=== PATIENT | male | born 1995 | race Caucasian/White ===

== ENCOUNTER 2019-11-18 14:32 | Emergency (ER) | payer SELFPAY ==
[2019-11-18] VITALS (10 sets, daily range): BP systolic 99–136; BP diastolic 49–78; PULSE 107–132; RESP 12–23; TEMP 36.9–39.1; O2SAT 94–95; BMI 24.4
--- NOTE | 2019-11-18 14:49 | EKG12_ITS ---
Test Reason : GN ILLNESS Blood Pressure : / mmHG Vent. Rate : 108 BPM Atrial Rate : 108 BPM P-R Int : 142 ms QRS Dur : 096 ms QT Int : 306 ms P-R-T Axes : 065 084 013 degrees QTc Int : 410 ms Sinus tachycardia Otherwise normal ECG Confirmed by SAGAR VENTURA, KIESHA ([id number]), society editor SERENE ZULETA ([id number]) on 11/21/2019 9:59:54 AM Referred By: Nany Elkins Confirmed By:KIESHA KEITH MD
--- NOTE | 2019-11-18 14:55 | NURSING ---
NO OLD EKGS
[2019-11-18] MEDS: Acetaminophen 500 MG Tablet 1000 MG PO (15:00)
[2019-11-18 15:03] LABS: Absolute Lymphocyte Count 0.96 X10^3/uL (0.83-4.51); Absolute Neutrophil Count 4.2 X10^3/uL (2.0-7.7); Basophil# 0.02 X10^3/uL; Basophil% 0.3 % (0-1); Eosinophil# 0.05 X10^3/uL; Eosinophils% 0.9 % (0-5); Hematocrit 42.8 % (40-54); Hemoglobin 14.7 g/dL (13.0-16.5); Lymphocyte # 0.96 X10^3/ul (4.0); Lymphocyte % 16.7 % (19-41); Mean Corp Hgb Conc 34.3 g/dL (32-36); Mean Corpuscular Hgb 29.8 pg (27.0-32.0); Mean Corpuscular Volume 86.6 fL (80-94); Mean Platelet Vol. 9.1 fl (6.2-12.0); Monocyte# 0.47 X10^3/uL; Monocyte% 8.2 % (0-10); NRBC Flagged by Analyzer 0 % (0-5); Neutrophil # 4.24 X10^3/uL (2.7-7.7); Neutrophil % 73.6 % (47-70); Platelet Count 208 K/mm3 (150-450); RBC Distribution Width CV 12.5 % (11.6-14.6); RBC Distribution Width SD 39.6 fl (35.1-43.9); Red Blood Count 4.94 M/mm3 (4.6-6.2); White Blood Count 5.8 K/mm3 (4.4-11.0)
[2019-11-18] MEDS: 0.9% Normal Saline 1,000 ML 999 ML IV ×3 (15:06→17:39)
--- NOTE | 2019-11-18 15:12 | RAD_ITS ---
STUDY: X-RAY CHEST REASON FOR EXAM: Male, 24 years old. cough, shortness of breath, fever TECHNIQUE: Frontal and lateral views of the chest were performed COMPARISON: None. FINDINGS: There is an ill-defined opacity in the left lower lobe, presumed pneumonia. The rest of the lungs are clear. There is no pneumothorax, cardiomegaly, pleural effusions or pulmonary edema. RAD/Chest PA and Lateral IMPRESSION: 1. Presumed left lower lobe pneumonia. Follow-up is recommended to document resolution. Suggest follow-up interval is 6 weeks. Electronically Signed: Junior Kraft, at 15:27 EST Tel , Service support ,
[2019-11-18 15:13] LABS: Partial Thromboplast Time 31.5 Seconds (24.1-36.2); Prothrombin Time (Protime)PT. 12.7 SECONDS (11.7-14.9)
--- NOTE | 2019-11-18 15:13 | ED.VIS.DYS ---
History of Present Illness Informant: Patient, Parent Onset: Weeks - 1 week Activity at onset: Exertion, Light Activity Timing: Continuous Quality: Dyspnea on exertion Current Severity: Severe Maximum Severity: Severe Worsened by: Coughing, Exertion Relieved by: Rest Associated Symptoms: Bloody Sputum, Chills, Cough, Fever, Green sputum, Sore throat, Sweats Chest Pain: Tightness Narrative: 24-year-old male history of asthma as a child presents with 5 days of dyspnea on exertion shortness of breath fevers and productive cough with green and blood streaked sputum. No vomiting or diarrhea. No chest pain. He is not lightheaded or dizzy. No leg pain or swelling. No recent travel or surgery. No history of DVT or PE. No relief with [id number] medications. PE Risk Factors: Negative for: Cancer, OCP + Smoking + > 35, Prior DVT or PE, Recent immobilization, Recent surgery, Recent travel Prior similar symptoms: Yes Recent Illness/Hospitalization: No <José Sherman - Last Filed: 11/18/19 17:35> <Kanu Field - Last Filed: 11/18/19 23:22> Chief Complaint: General Illness Past Medical History Prior records reviewed: Yes Past Medical History: None Surgical History: no surgical history Lives: With Family Smoking Status: Former smoker Alcohol: None Drugs: None <José Sherman - Last Filed: 11/18/19 17:35> <Kanu Field - Last Filed: 11/18/19 23:22> - Allergies and Home Meds Allergies/Adverse Reactions: Allergies Sulfa (Sulfonamide Antibiotics) Allergy (Verified 11/18/19 14:37) Rash MMR VACCINE Adverse Reaction (Uncoded 11/18/19 14:37) Other Primary Care Physician: Nany Elkins NP-C [Primary Care Provider] - 3-5 Days Review of Systems All systems negative except as indicated General: Reports: Chills, Fever, Malaise Eyes: Denies: Visual changes - bilaterally, Blurred Vision - bilaterally ENT: Reports: Rhinorrhea, Sore throat Cardiovascular: Reports: Chest pain. Denies: Palpitations, Heart racing Respiratory: Reports: Dyspnea, Cough, Sputum, Dyspnea on exertion. Denies: Orthopnea, Paroxysmal nocturnal dyspnea Gastrointestinal: Denies: Abdominal pain, Nausea, Vomiting, Diarrhea Genitourinary: Denies: Dysuria, Hematuria, Frequency Musculoskeletal: Reports: Myalgias. Denies: Arthralgias, Neck pain, Back pain Skin: Denies: Rash, Abscess, Abrasions, Wounds Neurological: Denies: Headache, Weakness, Parasthesia, Numbness Psych: Denies: Depression, Anxiety <Reyesmary annJosé - Last Filed: 11/18/19 17:35> Physical Exam Vital Signs/Narrative: Vital Signs Temp Pulse Resp BP Pulse Ox 11/18/19 14:36 102.4 F H 132 H 18 99/49 L 94 11/18/19 14:32 102.4 F H 132 H 18 99/49 L 94 Inital Vital Signs reviewed: Yes General: Well nourished, Well developed, No Acute Distress Head: Normocephalic, Atraumatic Eyes: Perrl, EOMI ENT: TM's clear, Dry mucous membranes, Nasal congestion Neck: Supple, Nontender, No lymphadenopathy, No JVD Cardiovascular: Regular rhythm, No murmurs, Tachycardia Respiratory: Diminished, Decreased Air Movement Abdomen: Soft, Nontender, Nondistended, Normal bowel sounds, No masses Back: Nontender, Normal Inspection Extremities: Nontender, No edema Skin: Normal color, No rash Neurological: Alert, Oriented x3 Psychological: Normal affect, Normal Mood <Reyesmary annPriyankaJosé - Last Filed: 11/18/19 17:35> Diagnostic/Tx/Re-eval Chest X-Ray - ED: 2 View, Read by ED Physician, Read by Radiologist, Left Infiltrate - Rhythm Strip Rhythm Strip: Sinus Tach Rate: 111 Ectopy: None - EKG Initial EKG Interpretation: No Acute Injury Pattern, Sinus Tachycardia Prior: No Prior Treatment - Dyspnea: Albuterol, Atrovent Repeat Evaluation: Improved With Ambulation: Asymptomatic - Medical Decision Making On arrival the patient's temperature is 102.4 ?F oral. Heart rate is 110 bpm. Pulse ox and blood pressure reveal a stable pulse ox with slightly hypotensive blood pressure 90/60 approximately. Because of this a sepsis work-up was pursued. He was ordered the appropriate IV fluid bolus based on his weight which equaled approximately 2.5 L. He was given Tylenol for his fever. His laboratory work-up CBC, CMP, INR are all unremarkable. Lactic acid is 1.3. 2 view chest x-ray shows a left lower lobe pneumonia. Repeat evaluation patient is feeling improved but he is complaining of some chest discomfort. Heart rate is improved. He was given Toradol Zofran and an aerosol. Repeat exam the patient feels much improved. His breathing is improved. Heart rate is normal with blood pressure is now 120/80 approximately and he is feeling well. Discussed with patient and his mom that we do feel he is appropriate for outpatient therapy. Heart rate and temperature and blood pressure all improved his white blood cell count is normal his lactic acid is negative and is not requiring oxygen. Will start on Levaquin. First dose given in the ED. I will also prescribe Tessalon Perles as well as an albuterol inhaler. He was advised to be seen by his primary care physician in the next 2 to 3 days otherwise he will return to the emergency department for worsening symptoms which were discussed. <José Sherman - Last Filed: 11/18/19 17:35> - Medical Decision Making Patient was seen with me. I did a [id number] evaluation with the patient. Patient presents with cough and fever. Patient states that this is been getting worse over the last couple days. Patient admits to some dark-colored sputum. Patient also admits to some upper respiratory congestion and rhinorrhea. Patient admits to some recent decreased appetite. Patient states his fever at home was up to 102. Vital signs are stable for slightly low blood pressure of 90/60. Patient is febrile here with a temperature of 102.4. Patient is in no acute distress. Oral mucosa is pink and moist. Neck is supple. Trachea is midline. There is no JVD. Heart was regular rate and rhythm. Lungs were diminished in the left base. Abdomen is soft and nontender. Cranial nerves II through XII are intact. There are no focal motor or sensory deficits noted. CBC, comprehensive metabolic profile, PT with INR, and lactate were obtained were all within normal limits. PA and lateral chest x-ray was obtained. There is a left lower lobe pneumonia. Patient was given IV fluids and aerosols. Patient was given Toradol. Patient felt better on reevaluation. Patient was given a prescription for Levaquin. Patient was given his first dose here. Patient was also given prescriptions for Tessalon Perles and an albuterol inhaler. Patient was instructed to follow-up with his primary care physician in 5 to 7 days. Patient and family understood and were agreeable with the plan. All questions were answered. <Kanu Field - Last Filed: 11/18/19 23:22> ED Disposition <José Sherman - Last Filed: 11/18/19 17:35> <Kanu Field - Last Filed: 11/18/19 23:22> - Plan for ED Patient: Disposition: Home or Assisted Living Diagnosis: Community acquired pneumonia, Sepsis Prescriptions: levoFLOXacin tablet [Levaquin tablet] 750 mg PO DAILY #5 tab Prescription Printed Benzonatate [Tessalon Perle] 200 mg PO TID PRN PRN #20 cap PRN Reason: Cough Prescription Printed Albuterol Inhaler [Ventolin Hfa] 2 puff INHALATION Q4H PRN PRN #1 inhaler PRN Reason: Wheezing Prescription Printed Referrals: Nany Elkins, [employer]-C [Primary Care Provider] - 3-5 Days
[2019-11-18 15:22] LABS: ALB/GLOB Ratio 0.8 RATIO (0.9-2.4); AST(SGOT) 15 U/L (15-37); Alanine Aminotransfer ALT/SGPT 23 U/L (16-61); Albumin, Serum 3.3 g/dL (3.2-5.0); Alkaline Phosphatase 73 U/L (45-117); Anion Gap 7 (5-15); BUN 11 mg/dL (7-18); BUN/Creat Ratio 11.1 RATIO (10-20); Calcium,Total 9.3 mg/dL (8.5-10.1); Chloride 108 mmol/L (98-107); Creatinine, Serum 0.99 mg/dL (0.70-1.30); EST Glomerular Filtration Rate 98 mL/min (>60); Est Glom Filt Rate - Afr Amer 118 mL/min (>60); Glucose 99 mg/dL (74-106); Potassium 3.9 mmol/L (3.5-5.1); Protein, Total 7.3 g/dL (6.4-8.2); Sodium Level 139 mmol/L (136-145)
[2019-11-18 15:32] LABS: Lactic Acid 1.3 mmol/L (0.4-1.9)
[2019-11-18] MEDS: Ipratropium/Albuterol Sulfate 3 ML AMPUL.NEB INHALATION (16:19)
[2019-11-18] MEDS: Ondansetron 4 MG/2 ML Vial IV (16:25)
[2019-11-18] MEDS: Ketorolac 30 MG/ML Syringe IV (16:25)
[2019-11-18 16:54] LABS: Bacteria 0 SEEN /hpf (None Seen); Mucous, Urine 0 SEEN /hpf (<or=2+); Red Blood Cells-Urine 0 SEEN /hpf (0-5); White Blood Cells 0 SEEN /hpf (0-5)
[2019-11-18 17:15] LABS: Color, Urine Yellow (Yellow); Glucose, Dipstick Normal (Normal); Ketone-Dipstick 15 mg/dl (Negative); Leukocyte Esterase-Dipstick Negative /ul (Negative); Nitrite-Dipstick Negative (Negative); Occult Blood-Urine Negative /ul (Negative); Protein-Dipstick Negative (Negative); Urine Bilirubin Dipstick Negative (Negative); Urine Clarity Clear (Clear); Urine Urobilinogen Normal (Normal)
[2019-11-18] MEDS: levoFLOXacin IV 750 MG/150 ML BAG 100 MG IV (17:15)
[2019-11-18 17:29] LABS: Squamous Epithelial Cells - UA 0-5 SEEN /hpf (0-5)
[2019-11-18] MEDS: Albuterol 2.5 MG/3 ML VIAL.NEB. INHALATION (17:53)
== END 2019-11-18 19:09 | disposition home or self-care (01) ==
PROVIDERS: Emergency Provider Physician Assistant Medical; PCP Nurse Practitioner Family; Referring Provider Nurse Practitioner Family
DX: A41.9 Sepsis, unspecified organism (principal); J18.9 Pneumonia, unspecified organism; Z87.891 Personal history of nicotine dependence
CPT/HCPCS: 71046; 80053; 81001; 83605; 85025; 85610; 85730; 87040; 93005; 94640; 96365; 96366; 96375; 99251; 99285; J7030; J7050; A4216; G0463; J2405